=== PATIENT | female | born 1940 | race Caucasian/White ===

== ENCOUNTER 2022-08-02 08:41 | Observation (INO) ==
--- NOTE | 2022-06-17 12:02 | PAT Medication Instructions ---
Medication Instructions Date of Service June 17, 2022 Home Medications amlodipine 5 mg tablet 2.5 mg PO HS anastrozole 1 mg tablet 1 mg PO QAM aspirin 81 mg tablet,delayed release 81 mg PO PM atorvastatin 40 mg tablet 20 mg PO HS calcium carbonate 650 mg calcium (1,625 mg) tablet 650 mg PO BID ezetimibe 10 mg tablet 10 mg PO HS lorazepam 0.5 mg tablet 0.5 mg PO BID magnesium oxide 400 mg (241.3 mg magnesium) tablet 500 mg PO QAM metoprolol succinate 25 mg tablet,extended release 24 hr 37.5 mg PO BID potassium chloride 10 mEq tablet,extended release(part/cryst) 10 meq PO BID acetaminophen 650 mg tablet,extended release 650 mg PO Q12H PRN Pain cholecalciferol (vitamin D3) 50 mcg (2,000 unit) capsule (Vitamin D3) 50 mcg PO QAM olmesartan 40 mg-hydrochlorothiazide 12.5 mg tablet 1 tab PO QAM ASK your prescriber and surgeon aspirin 81 mg tablet,delayed release 81 mg PO PM anastrozole 1 mg tablet 1 mg PO QAM DO NOT take the morning of surgery potassium chloride 10 mEq tablet,extended release(part/cryst) 10 meq PO BID calcium carbonate 650 mg calcium (1,625 mg) tablet 650 mg PO BID magnesium oxide 400 mg (241.3 mg magnesium) tablet 500 mg PO QAM cholecalciferol (vitamin D3) 50 mcg (2,000 unit) capsule (Vitamin D3) 50 mcg PO QAM olmesartan 40 mg-hydrochlorothiazide 12.5 mg tablet 1 tab PO QAM Take morning of surgery With a small sip of water, OTHERWISE NOTHING TO EAT OR DRINK AFTER MIDNIGHT: lorazepam 0.5 mg tablet 0.5 mg PO BID metoprolol succinate 25 mg tablet,extended release 24 hr 37.5 mg PO BID acetaminophen 650 mg tablet,extended release 650 mg PO Q12H PRN Pain (if needed) Take evening before surgery ezetimibe 10 mg tablet 10 mg PO HS amlodipine 5 mg tablet 2.5 mg PO HS atorvastatin 40 mg tablet 20 mg PO HS potassium chloride 10 mEq tablet,extended release(part/cryst) 10 meq PO BID calcium carbonate 650 mg calcium (1,625 mg) tablet 650 mg PO BID lorazepam 0.5 mg tablet 0.5 mg PO BID metoprolol succinate 25 mg tablet,extended release 24 hr 37.5 mg PO BID acetaminophen 650 mg tablet,extended release 650 mg PO Q12H PRN Pain (if needed) Other Notes If you have any questions please call us at [phone] or [phone] or [phone] or [phone]
--- NOTE | 2022-06-23 13:33 | Anesthesiology Consultation ---
Date of Service June 23, 2022 Assessment & Plan (1) Encounter for pre-operative examination: Chart Review Chart Review: Pending: Refer to Additional Notes / Consult section (pending PCP response to optimization form, cardiac clearance (please send optimization form), and most recent pacemaker check ) and Patient seen in Pre Admission Testing -Fax optimization note to PCP re: elevated glucose and abnormal CXR (please also send preop testing) - Fax optimization note to cardio re: patient approval for upcoming surgery from cardiac standpoint (has upcoming cardio appt next week per patient) - Please obtain most recent pacemaker check - Check BSG AM DOS (due to hyperglycemia on preop labs) - Pt is NOT a Same Day Joint candidate Per PAT appt on 06/23/22, patient denies any recent travel or large group activities. Pt is vaccinated for Covid. Will leave to surgeon's discretion if preop Covid testing needed. Educated on importance of using Covid precautions one week prior to surgery Pt seen by PCP 06/11/22= Pt presents for tight chest discomfort and low pulse. Pacer check today showed PACs and PVCs. Discussed with cardio- metoprolol dose adjusted and will follow up with cardio in two weeks. No chest discomfort with exertion. Nonrheumatic aortic valve insufficiencynoted to echo August 2021. Hypertensionamlodipine decreased; metoprolol increased. Metoprolol increased due to PACs/PVCs. Hyperlipidemiaencouraged diet and exercise. Teaching & Discussion Pre-Anesthesia Teaching/Discussion Notes: Instructed NPO after midnight before surgery,except medications with 15 cc of water. Medication instructions provided according to the PAT guidelines. History Surgery Operation Date: 08/02/22 09:00 Proposed Procedures p Left Total Knee Arthroplasty - Sanya Vega DO Height/Weight Height: 4 ft 10 in Weight: 65.3 kg Allergies Allergy/AdvReac Type Severity Reaction Status Date / Time prednisone Allergy Unknown Unknown Verified 06/17/22 09:48 Medications Home Medications Medication Instructions Recorded Confirmed Last Taken amlodipine 5 mg tablet 2.5 mg PO HS 03/23/22 06/17/22 Unknown anastrozole 1 mg tablet 1 mg PO QAM 03/23/22 06/17/22 Unknown aspirin 81 mg tablet,delayed 81 mg PO PM 03/23/22 06/17/22 Unknown release atorvastatin 40 mg tablet 20 mg PO HS 03/23/22 06/17/22 Unknown calcium carbonate 650 mg calcium 650 mg PO BID 03/23/22 06/17/22 Unknown (1,625 mg) tablet ezetimibe 10 mg tablet 10 mg PO HS 03/23/22 06/17/22 Unknown lorazepam 0.5 mg tablet 0.5 mg PO BID 03/23/22 06/17/22 Unknown magnesium oxide 400 mg (241.3 mg 500 mg PO QAM 03/23/22 06/17/22 Unknown magnesium) tablet metoprolol succinate 25 mg 37.5 mg PO BID 03/23/22 06/17/22 Unknown tablet,extended release 24 hr potassium chloride 10 mEq 10 meq PO BID 03/23/22 06/17/22 Unknown tablet,extended release(part/cryst) acetaminophen 650 mg 650 mg PO Q12H PRN Pain 06/17/22 06/17/22 Unknown tablet,extended release cholecalciferol (vitamin D3) 50 50 mcg PO QAM 06/17/22 06/17/22 Unknown mcg (2,000 unit) capsule (Vitamin D3) olmesartan 40 1 tab PO QAM 06/17/22 06/17/22 Unknown mg-hydrochlorothiazide 12.5 mg tablet Past Medical History Medical History Anxiety Breast cancer chemo/radiation > 2019 > lumpectomy A port placed for chemo- later removed CAD (coronary artery disease) 01/30/10- KRZYSZTOF to RCA x2 02/17/10 - KRZYSZTOF to LAD x 2 and Cx Heart block pt unaware of details, reason for pacemaker High blood pressure Hyperglycemia Glucose 224 on preop labs Hyperlipidemia Osteoarthritis Pacemaker [employer] > placed Nov 2020 > last checked June 11, 2022 > follows with Dr. Tucker in [facility] historian Rheumatoid arthritis Follows with PCP currently Sleep apnea hx of > no longer using machine due to recall 2 yrs ago > feels no issues with Exercise / Class Metabolic Activity III < 4 Walking/Shop/Light housework (no chest pain or SOB with short distance, flat surface ambulation - uses cane ) Past Surgical History Surgical History History of heart artery stent Jan 2010 History of lumpectomy of right breast History of tooth extraction Hx of tonsillectomy Past Anesthesia History No Hx of Anesthesia Complications (with exception to awareness and moving during 1st cardiac cath ) and No Family Hx of Anesthesia Complications History of PONV No Hx of Motion Sickness and History of PONV (remote 1x hx with eye surgery ) Social History Smoking Status: Never smoker Do You Dip or Chew Tobacco: No Hx Alcohol Use: No Hx Substance Use: No substance use type: does not use Review of Systems One episode of dizziness last week - following with cardio- no recent issues Occ reflux - improved with almonds Patient denies chest pain, shortness of breath, cough, wheezing, palpitations. No hx of seizures, stroke. No hx of blood clots or blood transfusions Physical Exam Constitutional no acute distress ENMT Mouth: no TMJ clicking Thyromental Distance: < 3.5 Finger Breadths (2.5) Mallampati Class: III Partial plate on top Missing bottom molars Neck + limited neck extension Respiratory normal respiratory effort; no respiratory distress Auscultation: lungs clear to auscultation bilaterally; no wheezes Cardiovascular Rate/Rhythm: regular rate and regular rhythm Heart Sounds: + murmur (II/ murmur ) Vessels: no carotid bruit Musculoskeletal Spine: no pain with cervical ROM Extremities: extremities normal to inspection Psychiatric Orientation: alert Lab Results Anesthesia Preop Results Results Anesthesia Widget: WBC 8.24 K/ul (4.8-10.8) 06/23/22 Hgb 14.4 g/dl (12.0-16.0) 06/23/22 Hct 41.8 % (37.0-47.0) 06/23/22 Plt 213 K/uL (130-400) 06/23/22 Na 141 mmol/L (136-145) 06/23/22 K 3.7 mmol/L (3.5-5.1) 06/23/22 Cl 103 mmol/L (98-107) 06/23/22 CO2 29 mmol/L (21-32) 06/23/22 BUN 22 mg/dl (6-23) 06/23/22 Creat 0.81 mg/dl (0.6-1.2) 06/23/22 Glucose Level 224 mg/dl (70-99(Fasting)) H 06/23/22 PT 10.3 Seconds (9.0-12.0) 06/23/22 PTT 25.8 Seconds (21.0-31.0) 06/23/22 INR 1.0 (0.9-1.1) 06/23/22 HA1c 5.7 % (4.5-5.6) H 06/23/22 Blood Type O Positive 06/23/22 Antibody Screen NEGATIVE 06/23/22 Testing Laboratory Results Surgeon's office informed of glucose results Electrocardiogram Date: 06/23/22 Atrial-sensed ventricular-paced rhythm with prolonged AV conduction at 58bpm Chest X-Ray Date: 06/23/22 FINDINGS: Dual lead left subclavian pacer is in place. There are right axillary surgical clips. Mild cardiomegaly is noted. There is no evidence for pulmonary edema. Subtle increased attenuation projecting over the right lower lung is noted. This may be artifactual. Left lung is clear. IMPRESSION: 1. Subtle band of increased attenuation projecting over the right lower lung. This is likely artifactual. A small focus of pneumonia is considered less likely however a nonemergent chest CT is recommended. 2. Cardiomegaly. No evidence for pulmonary edema. Echocardiogram Date: 08/31/21 EF: 60-65% LV Function: normal RWMA: + none Other Findings: + LVH (mild) and + diastolic dysfunction Pacemaker wire in RV. Mild aortic valve sclerosis without significant AV stenosis Mild to moderate AR. Mild MR. Mild TR. Mild AR Aortic root is mildly dilated at 3.41cm; ascending aorta mildly dilated at 3.52cm Compared to report from prior study on 08/25/20- no significant change Stress Test Date: 09/14/16 Type: nuclear Pharmacologic stress nuclear study is normal. Normal SPECT perfusion images. No significant ischemia detected. No evidence of infarct. Nondiagnostic due to left bundle branch block Normal LV systolic function. EF 70-75% Cervical Spine Date: 06/23/22 FINDINGS: The cervical spine is visualized from C1 through T1. No fracture or subluxation. Disc spaces are preserved. Prevertebral soft tissues and the C1-C2 interval are intact. The alignment remains intact throughout flexion and extension. Mild facet degenerative changes. IMPRESSION: 1. No fractures within the cervical spine. 2. The alignment remains intact throughout flexion and extension. COVID-19 Risk Screen Screening Information COVID-19 Screen Date: 06/23/22 Exposure 21 Days Family/Household +COVID Last 21 Days: No Exposure 10 Days Any COVID Exposure Last 10 Days: No Symptoms Last 10 Days Experienced COVID Sx Last 10 Days: No + COVID 0-90 Days COVID + in Last 0-90 Days: No Risk Plan COVID Risk Plan: No Risk Identified Patient Education COVID Preop Screening Education Complete: Yes
--- NOTE | 2022-07-29 12:33 | History & Physical Report ---
Date of Service July 29, 2022 Assessment & Plan (1) Osteoarthritis of left knee: We will proceed with a left total knee arthroplasty. Postoperatively she will be started on aspirin for DVT prophylaxis and kept overnight in the hospital for postop medical management. She plans to use energy physical therapy upon discharge. History of Present Illness Chief Complaint: Osteoarthritis of the left knee. Primary Care Provider: Jarad Paredes MD Irma is a pleasant 82-year-old female, who has been dealing with chronic increasing left knee pain. She has been treated at [facility] [place]. She has had multiple injections. She does have a cardiac history with five cardiac stents placed and a pacemaker. She has received cardiac clearance. Her knee pain is affecting her quality of life. She has trouble walking. She needs to use a walker. After failing extensive conservative treatment, she has elected proceed with a left total knee arthroplasty. Allergies Allergy/AdvReac Type Severity Reaction Status Date / Time prednisone Allergy Unknown Unknown Verified 06/17/22 09:48 Home Medications Medication Instructions Recorded Confirmed Type amlodipine 5 mg tablet 2.5 mg PO HS 03/23/22 06/17/22 History anastrozole 1 mg tablet 1 mg PO QAM 03/23/22 06/17/22 History aspirin 81 mg tablet,delayed 81 mg PO PM 03/23/22 06/17/22 History release atorvastatin 40 mg tablet 20 mg PO HS 03/23/22 06/17/22 History calcium carbonate 650 mg calcium 650 mg PO BID 03/23/22 06/17/22 History (1,625 mg) tablet ezetimibe 10 mg tablet 10 mg PO HS 03/23/22 06/17/22 History lorazepam 0.5 mg tablet 0.5 mg PO BID 03/23/22 06/17/22 History magnesium oxide 400 mg (241.3 mg 500 mg PO QAM 03/23/22 06/17/22 History magnesium) tablet metoprolol succinate 25 mg 37.5 mg PO BID 03/23/22 06/17/22 History tablet,extended release 24 hr potassium chloride 10 mEq 10 meq PO BID 03/23/22 06/17/22 History tablet,extended release(part/cryst) acetaminophen 650 mg 650 mg PO Q12H PRN Pain 06/17/22 06/17/22 History tablet,extended release cholecalciferol (vitamin D3) 50 50 mcg PO QAM 06/17/22 06/17/22 History mcg (2,000 unit) capsule (Vitamin D3) olmesartan 40 1 tab PO QAM 06/17/22 06/17/22 History mg-hydrochlorothiazide 12.5 mg tablet Past Med/Surg History Medical History Anxiety Breast cancer chemo/radiation > 2019 > lumpectomy A port placed for chemo- later removed CAD (coronary artery disease) 01/30/10- KRZYSZTOF to RCA x2 02/17/10 - KRZYSZTOF to LAD x 2 and Cx Heart block pt unaware of details, reason for pacemaker High blood pressure Hyperglycemia Glucose 224 on preop labs Hyperlipidemia Osteoarthritis Pacemaker [employer] > placed Nov 2020 > last checked June 11, 2022 > follows with Dr. Tucker in [facility] historian Rheumatoid arthritis Follows with PCP currently Sleep apnea hx of > no longer using machine due to recall 2 yrs ago > feels no issues with Surgical History History of heart artery stent Jan 2010 History of lumpectomy of right breast History of tooth extraction Hx of tonsillectomy Social History Smoking Status: Never smoker Second Hand Exposure: Yes (when working years ago); Do You Dip or Chew Tobacco: No; Hx Alcohol Use: No Hx Substance Use: No Preferred Language: Macanese Communication Ability: Effective Client Consultant Required: No Beliefs That Will Affect Care: None Current Living Situation: Alone Feels Safe at Home: Yes Assistive Devices: Cane, Denture - Upper, Glasses and Hearing Aid - Bilateral Review of Systems All systems reviewed & are unremarkable except as noted in HPI & below. Physical Exam On physical examination of the left knee, she has a significant varus deformity. She has good range of motion. She has pain over the distal medial femoral condyle and over the medial joint line.. Constitutional WD/WN, vitals as above Eyes PERRL, conjunctivae normal, anicteric sclerae ENMT external ear and nose normal, oropharynx normal Neck trachea midline, no thyromegaly Respiratory normal respiratory effort, lungs clear to auscultation Cardiovascular RRR, no murmur, no edema Gastrointestinal (Abdomen) normal bowel sounds, soft, nontender, no hepatosplenomegaly Skin no rashes, warm and dry Psychiatric A+Ox3, euthymic affect Results & Data Results & Data Laboratory Results . Diagnostic Findings X-rays of the left knee show advanced osteoarthritis with joint space narrowing, osteophyte formation, and [id number] articulation. PG Care Time/CCT Total # of Minutes Spent Total Time Spent with Patient: Total time spent is greater than 50% in coordination of care (as documented) at patient's floor/unit and/or counseling patient: Coding Level of Care Code None Diagnoses Osteoarthritis of left knee M17.12
[~2022-08-02 08:41] MED LIST: ACETAMINOPHEN 500 MG TAB PO SCH; BUPIVACAINE 0.5 % 5 MG/1 ML PF 10ML VIAL ONE; FAMOTIDINE 20 MG TAB PO SCH; GABAPENTIN 300 MG CAP PO SCH; LR 500ML BOLUS, THEN 15ML/HR IV SCH; LR 60ML/HR IV SCH; ROPIVACAINE 0.5% 5 MG/ML 30 ML VIAL ONE; TRANEXAMIC ACID 1,000 MG **IV Intra-op IV SCH; TRANEXAMIC ACID 1,000 MG **IV Pre-op IV SCH; ceFAZolin 2000MG 2,000 MG/15 ML SYR IV SCH
[2022-08-02] MEDS ORDERED: fentaNYL citrate PF 100 MCG/2 ML VIAL ONE (10:18)
[2022-08-02] MEDS: ALLERGY Noted to ORDERED Medication SCH ×4 (10:18→19:27)
[2022-08-02] MEDS ORDERED: MIDAZOLAM HCL 1 MG/ML 2ML VIAL ONE (10:18)
[2022-08-02] MEDS ORDERED: HYDROmorphone INJ 1 MG/ML SYRINGE IV PRN (11:43)
[2022-08-02] MEDS ORDERED: ATROPINE SULFATE 0.1 MG/ML 10ML SYR IV PRN (11:43)
[2022-08-02] MEDS ORDERED: ePHEDrine sulfate 50 MG/ML AMP IV PRN (11:43)
[2022-08-02] MEDS ORDERED: KETOROLAC 30 MG/ML VIAL IV PRN (11:43)
[2022-08-02] MEDS ORDERED: ONDANSETRON INJ 2 MG/ML 2 ML VIAL IV PRN ×2 (11:43→15:31)
--- NOTE | 2022-08-02 11:49 | History & Physical Bridge Note ---
Date of Service August 02, 2022 History & Physical Bridge Note I have examined the patient, reviewed the History & Physical and in the interval since the performance of the History & Physical I have noted the following changes of clinical significance: no changes noted
[2022-08-02] MEDS ORDERED: Ketorolac (*for OR use only*) 30 MG, dexAMETHasone 4 MG, KETAMINE HCL (**OR use only) 1... INFIL SCH ×2 (12:30→12:45)
[2022-08-02] MEDS ORDERED: PROPOFOL IV EMULSION 10 MG/ML 20 ML VIAL IV ONE (13:13)
--- NOTE | 2022-08-02 13:18 | Operative Report ---
PG Post Operative Report Pre & Post Diagnosis Operation Date: 08/02/22 11:20 Preoperative diagnosis: Osteoarthritis of the left knee Postop diagnosis: Osteoarthritis of the left knee I identified the patient and participated in the time-out.: Yes Procedure Operation Date: 08/02/22 11:20 Procedure: Left total knee arthroplasty Surgeon Sanya Vega DO Transport Medic Sanya Bonilla PA-C Estimated Blood Loss 30 Findings Consistent with Post-Op Diagnosis Specimens Left femoral and tibial bone Description of Procedure Implants used: I used a Cecil Persona total knee arthroplasty system with a size 5 narrow PS femur, C tibia, 31 oval patella, and a size 18 CPS polyethylene bearing. All components were cemented in place with Biomet cement. Irma arrived [facility] for the above procedure. She was seen in the preoperative holding area and the operative extremity was identified and signed. She was given a preoperative antibiotic, TXA, a spinal anesthetic and an adductor nerve block. She was taken back to the operating room and laid on the table in supine position. She was given basic sedation. The operative knee was then prepped and draped in sterile fashion. A timeout was done, and the patient and the operative extremity was properly identified. A midline incision was made directly over the patella. Dissection was taken down to the extensor mechanism. A midvastus arthrotomy was used. The medial retinaculum was released and the fat pad was mostly excised. The knee was flexed and the ACL, PCL, and meniscus were removed. A drill was sent down the center of the femoral canal followed by an intramedullary ashish. Off that ashish a distal femoral cutting block was placed. 9 mm was resected off the distal femur at 5 of valgus. A posterior referencing AP sizing guide was then placed on the distal femur. The femur measured to be a size 5. 2 drill holes were placed in 3 of external rotation. A 4-in-1 cutting block was then impacted into place. Anterior, posterior, and chamfer cuts were then made. The proximal tibia was then exposed. An external tibial alignment guide was placed. A tibial cut guide was then anchored in place and the proximal tibia was then resected. The posterior aspect of the knee was then opened up and any additional meniscus fragments and osteophytes were removed. The tibia measured to be a size C. The tibial plate was then placed in the appropriate rotation and the tibia was drilled and punched. Trial components were then placed. I used a size 18 CPS polyethylene insert. The knee was brought through a full range of motion and felt to be stable. The peg holes for the femoral component were then drilled. The patella was then everted and 9 mm was resected off the posterior aspect of the patella. The patella measured to be a size 31 oval. 3 peg holes were then drilled. A trial patella was placed. The knee was once again brought through a full range of motion and felt to be stable. Trial components were then removed. The surrounding soft tissues were injected with 100 cc of an orthopedic pain control cocktail. All components were then cemented into place with Biomet cement. The final polyethylene insert was then snapped into place. Once cement was dry the tourniquet was deflated. Hemostasis was obtained. A dilute betadyne lavage was then done for 3 minutes. The joint was then irrigated with normal saline solution. The midvastus arthrotomy was then closed with #1 Vicryl suture. The skin was closed with 2-0 Vicryl, 3-0V lock suture, and isabella. A soft compressive dressing was placed. She was then transferred to a hospital bed and taken to the postanesthesia care unit in stable condition. She tolerated the procedure well. Sanya Bonilla PA-C, was present for the entire procedure. He was critical for patient positioning, prepping, draping, retraction exposure, wound closure and application of sterile dressing. I attest to the content of the Intraoperative Record and any orders documented therein. Any exceptions are noted below.
--- NOTE | 2022-08-02 14:07 | XRay Report ---
TWO VIEWS LEFT KNEE CLINICAL HISTORY: Postoperative examination. FINDINGS: AP and crosstable lateral portable views of the left knee are obtained. A left knee arthrop lasty is in near anatomic alignment. There has been undersurface remodeling of the patella. No acute fracture is seen. There are expected postoperative changes around the knee including skin clips, soft tissue edema, and subcutaneous gas. IMPRESSION: Expected postoperative changes status post left knee arthroplasty. No acute fracture is s een. ACT 112: Negative or not required by law. Electronically signed by: Sotero Parker M.D. 08/02/2022 2:05 PM
[2022-08-02] MEDS ORDERED: METOCLOPRAMIDE HCL INJ 5 MG/ML 2 ML VIAL IV PRN (15:31)
[2022-08-02] MEDS ORDERED: oxyCODONE HCL IR 5 MG TAB (IMMEDIATE RELEASE) PO PRN (15:31)
[2022-08-02] MEDS ORDERED: bisacodyL 10 MG SUPP PR PRN (15:31)
[2022-08-02] MEDS ORDERED: NALOXONE HCL 0.4 MG/1 ML VIAL/CARP IV PRN (15:31)
[2022-08-02] MEDS ORDERED: HYDROmorphone INJ 0.5 MG/0.5 ML SYR IV PRN (15:31)
[2022-08-02] MEDS ORDERED: MAGNESIUM HYDROXIDE SUSP 30 ML UDC PO PRN (15:31)
--- NOTE | 2022-08-02 15:43 | Anesthesiology Progress Note ---
Date of Service August 02, 2022 Anesthesia Post Procedure Vital Signs Vital Signs: Temp Pulse Pulse Resp BP Pulse Ox O2 Del Method 08/02/22 15:00 36.0 C L 63 20 135/69 95 Nasal Cannula 08/02/22 14:50 63 20 124/64 97 Nasal Cannula 08/02/22 14:40 61 20 133/67 95 Nasal Cannula 08/02/22 14:30 63 20 130/68 95 Nasal Cannula 08/02/22 14:20 62 20 127/72 95 Nasal Cannula 08/02/22 14:10 62 16 120/70 96 Nasal Cannula 08/02/22 14:00 62 20 99/62 L 95 Nasal Cannula 08/02/22 13:50 65 20 116/62 97 Nasal Cannula 08/02/22 13:42 36.0 C L 66 20 110/63 96 Oxymask 08/02/22 09:49 CPAP 08/02/22 09:49 36.7 C 60 20 142/77 H 97 Room Air O2 Flow Rate 08/02/22 15:00 2 08/02/22 14:50 2 08/02/22 14:40 2 08/02/22 14:30 2 08/02/22 14:20 2 08/02/22 14:10 2 08/02/22 14:00 2 08/02/22 13:50 2 08/02/22 13:42 6 08/02/22 09:49 08/02/22 09:49 Transfer of Care Handoff Completed per policy Notes Mental Status: alert / awake / arousable Patient Amnestic to Procedure: Yes Nausea / Vomiting: adequately controlled Pain: adequately controlled Airway Patency, RR, SpO2: stable & adequate BP & HR: stable & adequate Hydration State: stable & adequate Anesthetic Complications: no major complications apparent
[2022-08-02] MEDS: SODIUM CHLORIDE 0.9% 1000ML 1,000 ML IV SCH (16:30)
[2022-08-02] MEDS: KETOROLAC TROMETHAMINE 15 MG/ML VIAL IV SCH ×2 (16:38→22:55)
[2022-08-02] MEDS: ACETAMINOPHEN 500 MG TAB PO SCH (17:42)
[2022-08-02] MEDS: ceFAZolin 2000MG 2,000 MG/15 ML SYR IV SCH (20:43)
[2022-08-02] MEDS: ASPIRIN 81 MG ECTAB PO SCH (20:45)
[2022-08-02] MEDS: DOCUSATE SODIUM 100 MG CAP PO SCH (20:46)
[2022-08-02] MEDS: METOPROLOL SUCC 25MG EXT REL TAB PO SCH (20:47)
[2022-08-02] MEDS: POTASSIUM CHLORIDE 10 MEQ TABCR PO SCH (20:48)
[2022-08-02] MEDS: LORazepam 0.5 MG TAB PO SCH (20:53)
[2022-08-02] MEDS ORDERED: SENNA 8.6 MG TAB PO SCH (21:00)
[2022-08-02] MEDS ORDERED: ATORVASTATIN 20 MG TAB PO SCH (21:00)
[2022-08-02] MEDS ORDERED: amLODIPine BESYLATE 5 MG TAB PO SCH (21:00)
[2022-08-02] MEDS ORDERED: EZETIMIBE 10 MG TABLET PO SCH (21:00)
[2022-08-03] MEDS: SODIUM CHLORIDE 0.9% 1000ML 1,000 ML IV SCH (00:42)
[2022-08-03] MEDS: ACETAMINOPHEN 500 MG TAB PO SCH ×2 (01:35→08:33)
[2022-08-03] MEDS: ceFAZolin 2000MG 2,000 MG/15 ML SYR IV SCH (04:28)
[2022-08-03] MEDS: KETOROLAC TROMETHAMINE 15 MG/ML VIAL IV SCH ×2 (04:29→08:35)
--- NOTE | 2022-08-03 07:07 | Orthopedic Progress Note ---
Date of Service August 03, 2022 Assessment & Plan (1) Status post left knee replacement: Overall she is doing very well. She is not having much pain in the left knee. She will be seen by physical therapy today for ambulation and range of motion exercises. She is on aspirin for DVT prophylaxis. She can be discharged home later today. She will follow-up with orthopedics in 2 weeks. Sheron Solis was seen and examined at bedside this morning. Overall she is doing very well. She is not having much pain in the left knee. She has been up and ambulating. She has no complaints.. Review of Systems All systems reviewed & are unremarkable except as noted in HPI & below. Physical Exam On physical examination the left knee, the dressing is clean and dry. Her leg is out full extension. She has active dorsiflexion plantarflexion of her left ankle.. Results & Data Results & Data Laboratory Results . Diagnostic Findings Postoperative x-rays of the left knee show the prosthesis to be in anatomic alignment without any evidence of fracture, desiccation, or loosening. PG Care Time/CCT Total # of Minutes Spent Total Time Spent with Patient: Total time spent is greater than 50% in coordination of care (as documented) at patient's floor/unit and/or counseling patient: Coding Level of Care Code 75601 Post Operative Follow-Up Diagnoses Status post left knee replacement Z96.652
--- NOTE | 2022-08-03 07:08 | Discharge Summary ---
Date of Service August 03, 2022 Admission HPI (Per Admitting) Irma is a pleasant 82-year-old female, who has been dealing with chronic increasing left knee pain. She has been treated at the [facility] in [place]. She has had multiple injections. She does have a cardiac history with five cardiac stents placed and a pacemaker. She has received cardiac clearance. Her knee pain is affecting her quality of life. She has trouble walking. She needs to use a walker. After failing extensive conser vative treatment, she has elected proceed with a left total knee arthroplasty. Admission Exam (Per Admitting) On physical examination of the left knee, she has a significant varus deformity. She has good range of motion. She has pain over the distal medial femoral condyle and over the medial joint line.. Principal Diagnosis Same as "Discharge Diagnosis" noted below under Discharge Instructions. Discharge Exam On physical examination the left knee, the dressing is clean and dry. Her leg is out full extension. She has active dorsiflexion plantarflexion of her left ankle.. Discharge Data Procedures Performed Operation Date: 08/02/22 11:20 Actual Procedures p Left Total Knee Arthroplasty(Left) - Sanya Vega DO Ordered Studies 08/02/22 05:00 US - OR guided needle placemen Routine Hospital Course (1) Status post left knee replacement: On August 02, 2022 Irma arrived at [facility] and underwent a left knee replaced without complication. She had a spinal anesthetic. Postoperatively she was started on aspirin for DVT prophylaxis and transferred to the general orthopedic floors. Her hospital course was uneventful. On postop day #1, her vital signs were stable and her pain was well controlled. She was able to participate well with physical therapy doing ambulation and range of motion exercises. She was then discharged home. She will follow with orthopedics in 2 weeks. PG Care Time/CCT Total # of Minutes Spent Total Time Spent with Patient: Total time spent is greater than 50% in coordination of care (as documented) at patient's floor/unit and/or counseling patient: Discharge Plan Discharge Items Patient Disposition: Home - Home Health Services Reason For Visit: Degenerative Joint Disease Left Knee Discharge Diagnosis: Left knee replacement Activity: Per Instructions section Non-emergency contact: Surgeon Call non-emergency contact if: your wound has increased redness and your wound has increased drainage Follow-up/Referrals: PCP,NO [Physician] - Diet: Regular Addtl Attending Provider Instructions: Activity and Therapy Recommendations: * If you are using [facility] then therapy will be provided at your home until they feel you have accomplished all of your goals. * If you are using [facility] then Physical Therapy will be provided until they feel you are ready to start Outpatient Physical Therapy. * If you are not using home therapy then Outpatient Physical Therapy should start about 3-5 days from your day of surgery. Therapy will last about 6-10 weeks * It is important not to put a pillow under your knee when you are relaxing or sleeping. It is just as important to make sure you are getting your knee perfectly straight as it is to regain your knee bend. * You were shown a series of exercises in the hospital. Do these exercises three times each day including the exercises you were shown in physical therapy. * Get up and walk several times each day. For the first four weeks, try not to stand or walk for more than one hour at a time. If you do stand or walk for more than one hour, you will not hurt anything, but your leg will likely swell. * As you feel comfortable, you may change from the walker or crutches to a cane and then to independent walking. Medications: * Narcotic You will likely be sent home from the hospital with a prescription for the narcotic pain medication that worked best throughout your stay. * Aspirin Most patients will be required to take Aspirin 81mg twice a day for 6 weeks after surgery. This is obtained [id number] and a prescription is not necessary. * Other medications may be prescribed for specific circumstances. If you have any questions, please call the office at . * Resume previous home medications unless otherwise instructed TEDs/Elastic Stockings: The white elastic stockings help limit swelling and prevent blood clots from forming in your legs.~ The more you wear them, the more they work. Wear them for six weeks. Dressing Care: The dressing can be changed after physical therapy on postop day #1. Daily dry dressing changes for a few days, especially if the incision is still draining some. If the incision is not draining then you may leave the isabella open to air. If there is a little bit of drainage or if the isabella are getting stuck on your clothing then cover the incision with a dry dressing. The isabella will be removed at your 2 week follow-up appointment. Showering: You may shower 5 days from the day of surgery as long as the incision is no longer draining. You may shower with the isabella exposed. Let soapy water run over the isabella and pat them dry. Do not scrub or soak the incision. Things To Watch For: * Drainage from the incision site that occurs more than one week after your surgery. * Increased redness at the incision site. * Fever above 102 degrees Fahrenheit. * Unusual chest pain or shortness of breath. * Call [facility] at with any of the above problems Follow-Up Visit: Follow-up with Dr. Vega's PA (Sanya Bonilla) 2-3 weeks after your day of surgery. He will remove your isabella and answer any questions. If you have any additional questions or concerns, Dr Vega is usually in the office at the same time and will be available An appointment was probably scheduled when you signed-up for surgery in the office. If you have any questions call Office Instructions: More detailed instructions as well as Frequently Asked Questions were provided in a folder by our office when you signed-up for surgery. Please review these instructions when you get home. If you have any further questions or concerns, please feel free to call the office at [phone] Pending Studies at Discharge: No Stand-Alone Forms: [facility], Smoking Cessation Medications and DC Order Prescriptions: New tramadol 50 mg tablet 50 mg PO Q6H PRN (Reason: pain) Qty: 30 0RF Continued metoprolol succinate 25 mg tablet extended release 24 hr 37.5 mg PO BID potassium chloride 10 mEq tablet,ER particles/crystals 10 meq PO BID anastrozole [Arimidex] 1 mg tablet 1 mg PO QAM atorvastatin [Lipitor] 40 mg tablet 20 mg PO HS amlodipine [Norvasc] 5 mg tablet 2.5 mg PO HS lorazepam 0.5 mg tablet 0.5 mg PO BID magnesium oxide 400 mg (241.3 mg magnesium) tablet 500 mg PO QAM calcium carbonate 650 mg calcium (1,625 mg) tablet 650 mg PO BID ezetimibe [Zetia] 10 mg tablet 10 mg PO HS acetaminophen [Tylenol Arthritis] 650 mg Tablet Extended Release 650 mg PO Q12H PRN (Reason: Pain) olmesartan-hydrochlorothiazide [Benicar HCT] 40-12.5 mg Tablet 1 tab PO QAM cholecalciferol (vitamin D3) [Vitamin D3] 50 mcg (2,000 unit) Capsule 50 mcg PO QAM Changed aspirin 81 mg tablet,delayed release (DR/EC) 81 mg PO BID 42 Days Qty: 0 0RF Admission Data Admit Date/Time: 08/02/22 13:43 Attending Provider: Sanya Vega Admit Provider: Sanya Vega Primary Care Provider: Jarad Paredes
[2022-08-03] MEDS ORDERED: dexAMETHasone 4 MG TAB PO SCH (08:00)
[2022-08-03] MEDS: ASPIRIN 81 MG ECTAB PO SCH (08:32)
[2022-08-03] MEDS: POTASSIUM CHLORIDE 10 MEQ TABCR PO SCH (08:35)
[2022-08-03] MEDS: METOPROLOL SUCC 25MG EXT REL TAB PO SCH (08:35)
[2022-08-03] MEDS: DOCUSATE SODIUM 100 MG CAP PO SCH (08:35)
[2022-08-03] MEDS: LORazepam 0.5 MG TAB PO SCH (08:43)
[2022-08-03] MEDS ORDERED: MAGNESIUM OXIDE 400 MG TAB PO SCH (09:00)
[2022-08-03] MEDS ORDERED: hydroCHLOROthiazide 25 MG TAB PO SCH (09:00)
[2022-08-03] MEDS ORDERED: OLMESARTAN HYDROCHLOROTHIAZIDE PO SCH (09:00)
[2022-08-03] MEDS ORDERED: ANASTROZOLE 1 MG TAB PO SCH (09:00)
[2022-08-03] MEDS ORDERED: MULTIVITAMIN TAB PO SCH (09:00)
[2022-08-03] MEDS ORDERED: LOSARTAN POTASSIUM 50 MG TAB PO SCH (09:00)
== END 2022-08-03 11:04 | disposition home health service (06) ==
LOC: ASU 08:41 → 3W 08:41

== ENCOUNTER 2023-07-29 06:39 | Observation (INO) ==
--- NOTE | 2023-07-07 12:27 | PAT Medication Instructions ---
Medication Instructions Date of Service July 07, 2023 Home Medications Medication Instructions Recorded amoxicillin 500 mg tablet 2,000 mg (4 x 500 mg) PO ONCE #4 09/14/22 tabs Medication List: amlodipine 5 mg tablet (Norvasc) 2.5 mg PO HS anastrozole 1 mg tablet (Arimidex) 1 mg PO QPM ezetimibe 10 mg tablet (Zetia) 10 mg PO HS lorazepam 0.5 mg tablet 0.5 mg PO BID magnesium oxide 400 mg (241.3 mg magnesium) tablet 500 mg PO QAM metoprolol succinate 25 mg tablet,extended release 24 hr 37.5 mg PO BID potassium chloride 10 mEq tablet,extended release(part/cryst) 10 - 20 meq PO BID acetaminophen 650 mg tablet,extended release 650 mg PO Q12H PRN Pain cholecalciferol (vitamin D3) 50 mcg (2,000 unit) capsule (Vitamin D3) 50 mcg PO QAM olmesartan 40 mg-hydrochlorothiazide 12.5 mg tablet (Benicar HCT) 1 tab PO QAM amoxicillin 500 mg tablet 2,000 mg (4 x 500 mg) PO ONCE (dental prophylaxis) apixaban 5 mg tablet (Eliquis) 5 mg PO BID atorvastatin 20 mg tablet 20 mg PO HS calcium carbonate (Calcium 600) 600 mg PO QAM MEDICATION INSTRUCTIONS: Continue as directed amoxicillin 500 mg tablet 2,000 mg (4 x 500 mg) PO ONCE (dental prophylaxis) ASK your prescriber and surgeon apixaban 5 mg tablet (Eliquis) 5 mg PO BID (for spinal anesthesia: will need to hold Eliquis/apixaban at least 72 hours prior to surgery) DO NOT take the morning of surgery cholecalciferol (vitamin D3) 50 mcg (2,000 unit) capsule (Vitamin D3) 50 mcg PO QAM olmesartan 40 mg-hydrochlorothiazide 12.5 mg tablet (Benicar HCT) 1 tab PO QAM magnesium oxide 400 mg (241.3 mg magnesium) tablet 500 mg PO QAM calcium carbonate (Calcium 600) 600 mg PO QAM potassium chloride 10 mEq tablet,extended release(part/cryst) 10 - 20 meq PO BID Take morning of surgery With a small sip of water, OTHERWISE NOTHING TO EAT OR DRINK AFTER MIDNIGHT: lorazepam 0.5 mg tablet 0.5 mg PO BID acetaminophen 650 mg tablet,extended release 650 mg PO Q12H PRN Pain (if needed) metoprolol succinate 25 mg tablet,extended release 24 hr 37.5 mg PO BID Take evening before surgery amlodipine 5 mg tablet (Norvasc) 2.5 mg PO HS anastrozole 1 mg tablet (Arimidex) 1 mg PO QPM ezetimibe 10 mg tablet (Zetia) 10 mg PO HS lorazepam 0.5 mg tablet 0.5 mg PO BID atorvastatin 20 mg tablet 20 mg PO HS acetaminophen 650 mg tablet,extended release 650 mg PO Q12H PRN Pain (if needed) metoprolol succinate 25 mg tablet,extended release 24 hr 37.5 mg PO BID potassium chloride 10 mEq tablet,extended release(part/cryst) 10 - 20 meq PO BID Other Notes If you have any questions please call us at [phone] or [phone] or [phone] or [phone]
--- NOTE | 2023-07-11 13:35 | Anesthesiology Consultation ---
Date of Service July 11, 2023 Assessment & Plan (1) Encounter for pre-operative examination: - will request 06/21/23 Dr. Caitlin Shen cardiology note, will need clearance notation if this was not a clearance appointment. - check BSG am DOS. - right arm restriction. - [employer] pacemaker. - Outpatient joint assessment: Patient is currently scheduled for inpatient pathway. If re-evaluated and patient/surgeon requests outpatient pathway, patient is not recommended candidate for outpatient joint program from anesthesia standpoint. Chart Review Chart Review: Pending: Refer to Additional Notes / Consult section and Patient seen in Pre Admission Testing Teaching & Discussion Pre-Anesthesia Teaching/Discussion Notes: Instructed NPO after midnight before surgery, except medications with 15 cc of water. Medication instructions provided according to the PAT guidelines. History Surgery Operation Date: 07/29/23 07:00 Proposed Procedures p Right Total Knee Arthroplasty - Sanya Vega, Height/Weight Height: 4 ft 10 in Weight: 68.1 kg Allergies Allergy/AdvReac Type Severity Reaction Status Date / Time Penicillins Allergy Intermediate Hives Verified 07/11/23 13:39 ketoconazole Allergy red, Verified 07/06/23 09:18 itching, burning prednisone AdvReac Mild Fatigued Verified 07/06/23 09:14 Medications Home Medications Medication Instructions Recorded Confirmed Last Taken amlodipine 5 mg tablet (Norvasc) 2.5 mg PO HS 03/23/22 07/06/23 08/01/22 21:30 anastrozole 1 mg tablet (Arimidex) 1 mg PO QPM 03/23/22 07/06/23 08/01/22 07:30 ezetimibe 10 mg tablet (Zetia) 10 mg PO HS 03/23/22 07/06/23 08/01/22 21:30 lorazepam 0.5 mg tablet 0.5 mg PO BID 03/23/22 07/06/23 08/02/22 07:30 magnesium oxide 400 mg (241.3 mg 500 mg PO QAM 03/23/22 07/06/23 08/01/22 07:30 magnesium) tablet metoprolol succinate 25 mg 37.5 mg PO BID 03/23/22 07/06/23 08/02/22 07:30 tablet,extended release 24 hr potassium chloride 10 mEq 10 - 20 meq PO BID 03/23/22 07/06/23 08/01/22 18:00 tablet,extended release(part/cryst) acetaminophen 650 mg 650 mg PO Q12H PRN Pain 06/17/22 07/06/23 08/02/22 07:30 tablet,extended release cholecalciferol (vitamin D3) 50 50 mcg PO QAM 06/17/22 07/06/23 08/01/22 07:30 mcg (2,000 unit) capsule (Vitamin D3) olmesartan 40 1 tab PO QAM 06/17/22 07/06/23 08/01/22 07:30 mg-hydrochlorothiazide 12.5 mg tablet (Benicar HCT) amoxicillin 500 mg tablet 2,000 mg (4 x 500 mg) PO ONCE #4 09/14/22 07/06/23 Unknown tabs apixaban 5 mg tablet (Eliquis) 5 mg PO BID 07/06/23 07/06/23 Unknown atorvastatin 20 mg tablet 20 mg PO HS 07/06/23 07/06/23 Unknown calcium carbonate (Calcium 600) 600 mg PO QAM 07/06/23 07/06/23 Unknown Past Medical History Medical History (Updated 07/11/23 @ 15:22 by Chantell Sterling PA-C) Anxiety Breast cancer chemo/radiation > 2019 > right lumpectomy-limb restriction. A port placed for chemo- later removed CAD (coronary artery disease) 01/30/10- KRZYSZTOF to RCA x2 02/17/10 - KRZYSZTOF to LAD x 2 and Cx Hearing loss wears hearing aids bilat Heart block hx-reason for pacemaker; f/u dr. tucker, [place] History of hypertension controlled, stable per pt Hyperlipidemia Limb alert care status right arm restriction Pacemaker [employer] > placed Nov 2020 > last checked 06/01/23 > follows with Dr. Tucker in [place] Poor historian Rheumatoid arthritis Follows with PCP currently Sleep apnea CPAP-compliant Thoracic aortic aneurysm Patient denies h/o stroke, seizures, heart attack, heart failure, blood clots/DVTs or blood transfusions. Exercise / Class Metabolic Activity III < 4 Walking/Shop/Light housework (shortness of breath with usual activities ongoing over past year-denies change since seeing PCP or cardiology-denies change or worsening (noted in 06/21/23 PCP note); denies chest discomfort; ambulates with cane) Past Surgical History Surgical History History of heart artery stent 01/30/10- KRZYSZTOF to RCA x2, [facility] 02/17/10 - KRZYSZTOF to LAD x 2 and Cx, [facility], [facility]; f/u dr. tucker, [place] History of lumpectomy of right breast History of permanent cardiac pacemaker placement 11/2020, [facility] History of tooth extraction History of total left knee replacement (TKR) Hx of tonsillectomy Past Anesthesia History No Hx of Anesthesia Complications and No Family Hx of Anesthesia Complications History of PONV No Hx of Motion Sickness and History of PONV (denies needing scop patch) Social History Smoking Status: Never smoker Do You Dip or Chew Tobacco: No Hx Alcohol Use: No Hx Substance Use: No substance use type: does not use Review of Systems Patient denies chest pain, fever, chills, cough, wheezing, or palpitations. Physical Exam Vital Signs Vitals BP 129/76 P 55 TEMP 98.4 SP02 98% on RA RESP 18 Physical Patient resting comfortably in chair in no acute distress, alert and oriented, responding appropriately throughout visit Full cervical extension range of motion without pain TMD 3.5 finger breadths Mallampati Score 2 Dentition: removable upper partial, denies chipped or loose teeth, caps/crowns, implants or bridges Lungs: normal respiratory effort. Good air movement, clear throughout to auscultation, no adventitious breath sounds Cardiac: regular rate and rhythm, no murmurs noted Carotid arteries: negative bruit bilat Lab Results Anesthesia Preop Results Results Anesthesia Widget: WBC 6.79 K/ul (4.8-10.8) 07/11/23 Hgb 13.5 g/dl (12.0-16.0) 07/11/23 Hct 40.4 % (37.0-47.0) 07/11/23 Plt 223 K/uL (130-400) 07/11/23 Na 140 mmol/L (136-145) 07/11/23 K 3.7 mmol/L (3.5-5.1) 07/11/23 Cl 105 mmol/L (98-107) 07/11/23 CO2 28 mmol/L (21-32) 07/11/23 BUN 23 mg/dl (6-23) 07/11/23 Creat 0.97 mg/dl (0.6-1.2) 07/11/23 Glucose Level 88 mg/dl (70-99(Fasting)) 07/11/23 PT 10.9 Seconds (9.0-12.0) 07/11/23 PTT 29 Seconds (21-31) 07/11/23 INR 1.0 (0.9-1.1) 07/11/23 Blood Type O Positive 07/11/23 Antibody Screen NEGATIVE 07/11/23 Testing Electrocardiogram Date: 07/11/23 Atrial sensed ventricular paced rhythm with prolonged AV conduction, rate 57 bpm Chest X-Ray Date: 07/11/23 No acute process. Echocardiogram Date: 08/31/21 EF 60-65% No LV wall motion abnormalities Mild aortic valve sclerosis without significant stenosis Mild to moderate aortic regurgitation Mild mitral regurgitation Mild tricuspid regurgitation Mild pulmonic regurgitation Mildly dilated aortic root Mildly dilated ascending aorta Stress Test Date: 07/19/22 MPHR 57% No evidence of infarction or ischemia Non-diagnostic: v. paced Recommend medical treatment Cervical Spine Date: 07/11/23 No cervical spine fractures. Preserved disc spaces. No change in minimal facet arthrosis. Other Testing Pacemaker report 04/21/23 [employer] 0 mode switch episodes AP 12% DUST MIXER 89% No events
--- NOTE | 2023-07-29 06:33 | History & Physical Bridge Note ---
Date of Service July 29, 2023 History & Physical Bridge Note I have examined the patient, reviewed the History & Physical and in the interval since the performance of the History & Physical I have noted the following changes of clinical significance: no changes noted
[~2023-07-29 06:39] MED LIST changes: -ACETAMINOPHEN 500 MG TAB PO SCH; +BUPIVACAINE 0.25% PF 30 ML VIAL ONE; -FAMOTIDINE 20 MG TAB PO SCH; -GABAPENTIN 300 MG CAP PO SCH; -LR 500ML BOLUS, THEN 15ML/HR IV SCH; -LR 60ML/HR IV SCH; -ROPIVACAINE 0.5% 5 MG/ML 30 ML VIAL ONE; -TRANEXAMIC ACID 1,000 MG **IV Intra-op IV SCH; -TRANEXAMIC ACID 1,000 MG **IV Pre-op IV SCH; -ceFAZolin 2000MG 2,000 MG/15 ML SYR IV SCH
[2023-07-29] MEDS ORDERED: fentaNYL citrate PF 100 MCG/2 ML VIAL IV PRN (06:53)
[2023-07-29] MEDS ORDERED: ATROPINE SULFATE 0.1 MG/ML 10ML SYR IV PRN (06:53)
[2023-07-29] MEDS ORDERED: ONDANSETRON INJ 2 MG/ML 2 ML VIAL IV PRN ×2 (06:53→11:48)
[2023-07-29] MEDS ORDERED: ePHEDrine sulfate 50 MG/ML AMP IV PRN (06:53)
[2023-07-29] MEDS ORDERED: fentaNYL citrate PF 100 MCG/2 ML VIAL ONE (07:01)
[2023-07-29] MEDS ORDERED: MIDAZOLAM HCL 1 MG/ML 2ML VIAL ONE (07:01)
[2023-07-29] MEDS ORDERED: PHENYLEPHRINE HCL 10 MG/ML VIAL ONE (07:10)
[2023-07-29] MEDS ORDERED: PROPOFOL IV EMULSION 10 MG/ML 20 ML VIAL IV ONE (07:10)
[2023-07-29] MEDS: LR 500ML BOLUS, THEN 15ML/HR IV SCH (07:21)
[2023-07-29] MEDS: ACETAMINOPHEN 500 MG TAB PO SCH ×2 (07:22→13:46)
[2023-07-29] MEDS: FAMOTIDINE 20 MG TAB PO SCH (07:23)
[2023-07-29] MEDS: GABAPENTIN 300 MG CAP PO SCH (07:23)
[2023-07-29] MEDS: dexAMETHasone**PF** 10 MG/ML VIAL IV SCH (07:34)
[2023-07-29] MEDS: TRANEXAMIC ACID 1,000 MG **IV Pre-op IV SCH (07:42)
[2023-07-29] MEDS: ceFAZolin 2000MG 2,000 MG/15 ML SYR IV ONE (07:52)
[2023-07-29] MEDS ORDERED: ePHEDrine sulfate 50 MG/5 ML SYR ONE (08:08)
[2023-07-29] MEDS ORDERED: diphenhydrAMINE 50 MG/ML VIAL ONE (08:14)
[2023-07-29] MEDS: ORTHO JOINT ANESTHETIC ONE (08:37)
[2023-07-29] MEDS ORDERED: PHENYLEPHRINE 100MCG/ML 10ML SYR IV ONE (09:04)
[2023-07-29] MEDS: TRANEXAMIC ACID 1,000 MG **IV Intra-op IV SCH (09:15)
[2023-07-29] MEDS: ROPIV 0.5% 246mg, Ketorolac 30mg, EPINEPHrine 0.5mg in NSS INFIL SCH (09:16)
--- NOTE | 2023-07-29 09:19 | Operative Report ---
PG Post Operative Report Pre & Post Diagnosis Operation Date: 07/29/23 08:00 Pre-Op Diagnosis: Degenerative Joint Disease Right Knee Post-Op Diagnosis: Degenerative Joint Disease Right Knee I identified the patient and participated in the time-out.: Yes Procedure Operation Date: 07/29/23 08:00 Actual Procedures p Right Total Knee Arthroplasty(Right) - Sanya Vega DO Surgeon Sanya Vega DO Linen Room Supervisor Sanya Bonilla PA-C Estimated Blood Loss 30 Findings Consistent with Post-Op Diagnosis Specimens Right femoral tibial bone Description of Procedure Implants used: I used a Cecil Persona total knee arthroplasty system with a size 5 narrow PS femur, C tibia, 31 oval patella, and a size 14 CPS polyethylene bearing. All components were cemented in place with Biomet cement. Irma arrived [facility] for the above procedure. She was seen in the preoperative holding area and the operative extremity was identified and signed. She was given a preoperative antibiotic, TXA, a spinal anesthetic and an adductor nerve block. She was taken back to the operating room and laid on the table in supine position. She was given basic sedation. The operative knee was then prepped and draped in sterile fashion. A timeout was done, and the patient and the operative extremity was properly identified. A midline incision was made directly over the patella. Dissection was taken down to the extensor mechanism. A midvastus arthrotomy was used. The medial retinaculum was released and the fat pad was mostly excised. The knee was flexed and the ACL, PCL, and meniscus were removed. A drill was sent down the center of the femoral canal followed by an intramedullary ashish. Off that ashish a distal femoral cutting block was placed. 9 mm was resected off the distal femur at 5 of valgus. A posterior referencing AP sizing guide was then placed on the distal femur. The femur measured to be a size 5. 2 drill holes were placed in 3 of external rotation. A 4-in-1 cutting block was then impacted into place. Anterior, posterior, and chamfer cuts were then made. The proximal tibia was then exposed. An external tibial alignment guide was placed. A tibial cut guide was then anchored in place and the proximal tibia was then resected. The posterior aspect of the knee was then opened up and any additional meniscus fragments and osteophytes were removed. The tibia measured to be a size C. The tibial plate was then placed in the appropriate rotation and the tibia was drilled and punched. Trial components were then placed. I used a size 14 CPS polyethylene insert. The knee was brought through a full range of motion and felt to be stable. The peg holes for the femoral component were then drilled. The patella was then everted and 9 mm was resected off the posterior aspect of the patella. The patella measured to be a size 31 oval. 3 peg holes were then drilled. A trial patella was placed. The knee was once again brought through a full range of motion and felt to be stable. Trial components were then removed. The surrounding soft tissues were injected with 100 cc of an orthopedic pain control cocktail. All components were then cemented into place with Biomet cement. The final polyethylene insert was then snapped into place. Once cement was dry the tourniquet was deflated. Hemostasis was obtained. A dilute betadyne lavage was then done for 3 minutes. The joint was then irrigated with normal saline solution. The midvastus arthrotomy was then closed with #1 Vicryl suture. The skin was closed with 2-0 Vicryl, 3-0V lock suture, and isabella. A soft compressive dressing was placed. She was then transferred to a hospital bed and taken to the postanesthesia care unit in stable condition. She tolerated the procedure well. Sanya Bonilla PA-C, was present for the entire procedure. He was critical for patient positioning, prepping, draping, retraction exposure, wound closure and application of sterile dressing. I attest to the content of the Intraoperative Record and any orders documented therein. Any exceptions are noted below.
--- NOTE | 2023-07-29 11:01 | XRay Report ---
XR knee RT 1 or 2V routine CLINICAL HISTORY: Surgical Post Op TECHNIQUE: 2 views of the right knee were obtained. Comparison: None available at the time of this dictation. FINDINGS: Patient is status post total knee arthroplasty with expected postsurgical changes including soft tiss ue swelling and subcutaneous emphysema. No periarticular lucency or hardware fracture is seen. IMPRESSION: Expected postoperative appearance status post placement of total knee arthroplasty. ACT 112: Negative or not required by law. Electronically signed by: Terrence Siegel M.D. 07/29/2023 11:00 AM
[2023-07-29] MEDS ORDERED: METOCLOPRAMIDE HCL INJ 5 MG/ML 2 ML VIAL IV PRN (11:48)
[2023-07-29] MEDS ORDERED: bisacodyL 10 MG SUPP PR PRN (11:48)
[2023-07-29] MEDS ORDERED: HYDROmorphone INJ 0.5 MG/0.5 ML SYR IV PRN (11:48)
[2023-07-29] MEDS ORDERED: NALOXONE HCL 0.4 MG/1 ML VIAL/CARP IV PRN (11:48)
[2023-07-29] MEDS ORDERED: oxyCODONE HCL IR 5 MG TAB (IMMEDIATE RELEASE) PO PRN (11:48)
[2023-07-29] MEDS ORDERED: MAGNESIUM HYDROXIDE SUSP 30 ML UDC PO PRN (11:48)
[2023-07-29] MEDS: LR 60ML/HR IV SCH (12:28)
[2023-07-29] MEDS: ALLERGY Noted to ORDERED Medication SCH (12:28)
--- NOTE | 2023-07-29 12:52 | Anesthesiology Progress Note ---
Date of Service July 29, 2023 Anesthesia Post Procedure Vital Signs Vital Signs: Temp Pulse Pulse Resp BP Pulse Ox O2 Del Method 07/29/23 12:37 36.3 C L 53 L 16 133/78 95 Nasal Cannula 07/29/23 12:00 36.4 C L 57 L 16 122/76 94 Nasal Cannula 07/29/23 11:15 36.4 C L 63 21 120/71 98 Nasal Cannula 07/29/23 11:05 63 19 134/73 99 Nasal Cannula 07/29/23 10:55 58 L 23 124/69 95 Nasal Cannula 07/29/23 10:45 62 23 129/69 95 Nasal Cannula 07/29/23 10:35 63 22 132/65 96 Nasal Cannula 07/29/23 10:25 64 22 138/63 96 Nasal Cannula 07/29/23 10:15 61 16 119/68 97 Nasal Cannula 07/29/23 10:05 65 22 118/74 94 Nasal Cannula 07/29/23 09:55 65 23 124/72 95 Nasal Cannula 07/29/23 09:45 67 22 121/68 96 Nasal Cannula 07/29/23 09:36 36.1 C L 61 20 122/68 97 Oxymask 07/29/23 07:12 36.4 C L 60 17 157/81 H 94 Room Air O2 Flow Rate 07/29/23 12:37 1 07/29/23 12:00 1 07/29/23 11:15 2 07/29/23 11:05 2 07/29/23 10:55 2 07/29/23 10:45 2 07/29/23 10:35 2 07/29/23 10:25 2 07/29/23 10:15 2 07/29/23 10:05 2 07/29/23 09:55 2 07/29/23 09:45 2 07/29/23 09:36 7 07/29/23 07:12 Transfer of Care Handoff Completed per policy Notes Mental Status: alert / awake / arousable and participated in evaluation Patient Amnestic to Procedure: Yes Nausea / Vomiting: adequately controlled Pain: adequately controlled Airway Patency, RR, SpO2: stable & adequate BP & HR: stable & adequate Hydration State: stable & adequate Neuraxial Anesthesia: was administered and sensory block is resolving Anesthetic Complications: no major complications apparent and Pt Satisfied with anesthetic care
[2023-07-29] MEDS: KETOROLAC TROMETHAMINE 15 MG/ML VIAL IV SCH (13:46)
[2023-07-29] MEDS: SODIUM CHLORIDE 0.9% 1,000 ML IV SCH (13:46)
[2023-07-29] MEDS: ceFAZolin 2000MG 2,000 MG/15 ML SYR IV SCH (16:30)
[2023-07-29] MEDS: EZETIMIBE 10 MG TAB PO SCH (20:42)
[2023-07-29] MEDS: ATORVASTATIN 20 MG TAB PO SCH (20:43)
[2023-07-29] MEDS: amLODIPine BESYLATE 5 MG TAB PO SCH (20:43)
[2023-07-29] MEDS: ANASTROZOLE 1 MG TAB PO SCH (20:43)
[2023-07-29] MEDS: METOPROLOL SUCC 25MG EXT REL TAB PO SCH (20:45)
[2023-07-29] MEDS: POTASSIUM CHLORIDE 10 MEQ TABCR PO SCH (20:47)
[2023-07-29] MEDS: SENNA 8.6 MG TAB PO SCH (20:47)
[2023-07-29] MEDS: DOCUSATE SODIUM 100 MG CAP PO SCH (20:47)
[2023-07-29] MEDS: LORazepam 0.5 MG TAB PO SCH (20:53)
--- NOTE | 2023-07-30 08:15 | Orthopedic Progress Note ---
Date of Service July 30, 2023 Assessment & Plan (1) Status post right knee replacement: Overall she is doing very well. She is not having much pain in the right knee. She will be seen by physical therapy today for ambulation and range of motion exercises. The nursing staff can change her dressing after physical therapy. She is on Eliquis for DVT prophylaxis. She can be discharged home later today. She will follow-up orthopedics in 2 weeks. Sheron Solis was seen and examined at bedside this morning. Overall she is doing very well. She is not having much pain in the right knee. She has been up and ambulating to the bathroom. She has no complaints.. Review of Systems All systems reviewed & are unremarkable except as noted in HPI & below. Physical Exam On physical examination of the right knee, the dressing is clean and dry. Her leg is out full extension. She is active dorsiflexion plantarflexion of the right ankle. Results & Data Results & Data Laboratory Results . Diagnostic Findings Postoperative x-rays of the right knee show the prosthesis to be in anatomic alignment without any evidence of fracture complication, or loosening.. PG Care Time/CCT Total # of Minutes Spent Total Time Spent with Patient: Total time spent is greater than 50% in coordination of care (as documented) at patient's floor/unit and/or counseling patient: Coding Level of Care Code 62547 Post Operative Follow-Up Diagnoses Status post right knee replacement Z96.651
--- NOTE | 2023-07-30 08:16 | Discharge Summary ---
Date of Service July 30, 2023 Principal Diagnosis Same as "Discharge Diagnosis" noted below under Discharge Instructions. Discharge Exam On physical examination of the right knee, the dressing is clean and dry. Her leg is out full extension. She is active dorsiflexion plantarflexion of the right ankle. Discharge Data Procedures Performed Operation Date: 07/29/23 08:00 Actual Procedures p Right Total Knee Arthroplasty(Right) - Sanya Vega DO Ordered Studies 07/29/23 05:00 US - OR guided needle placemen Routine Hospital Course (1) Status post right knee replacement: On July 29, 2023 Irma arrived at [facility] and underwent a right knee replacement without complication. She had a spinal anesthetic. Postoperatively she was started on Eliquis for DVT prophylaxis and transferred to the general orthopedic floors. Her hospital course was uneventful. On postop day #1, her vital signs were stable and her pain was well-controlled. She was able to participate well with physical therapy doing ambulation and range of motion exercises. She was then discharged home. She will follow-up with orthopedics in 2 weeks. PG Care Time/CCT Total # of Minutes Spent Total Time Spent with Patient: Total time spent is greater than 50% in coordination of care (as documented) at patient's floor/unit and/or counseling patient: Discharge Plan Discharge Items Patient Disposition: Home - Self-Care Reason For Visit: Degenerative Joint Disease Right Knee Discharge Diagnosis: Right knee replacement Activity: As commented below Non-emergency contact: Surgeon Call non-emergency contact if: your wound has increased redness and your wound has increased drainage Follow-up/Referrals: Jarad Paredes MD [Primary Care Provider] - Diet: Regular Addtl Attending Provider Instructions: Activity and Therapy Recommendations: * If you are using [facility] then therapy will be provided at your home until they feel you have accomplished all of your goals. * If you are using [facility] then Physical Therapy will be provided until they feel you are ready to start Outpatient Physical Therapy. * If you are not using home therapy then Outpatient Physical Therapy should start about 3-5 days from your day of surgery. Therapy will last about 6-10 weeks * It is important not to put a pillow under your knee when you are relaxing or sleeping. It is just as important to make sure you are getting your knee perfectly straight as it is to regain your knee bend. * You were shown a series of exercises in the hospital. Do these exercises three times each day including the exercises you were shown in physical therapy. * Get up and walk several times each day. For the first four weeks, try not to stand or walk for more than one hour at a time. If you do stand or walk for more than one hour, you will not hurt anything, but your leg will likely swell. * As you feel comfortable, you may change from the walker or crutches to a cane and then to independent walking. Medications: * Narcotic You will likely be sent home from the hospital with a prescription for the narcotic pain medication that worked best throughout your stay. * Cefadroxil -take the antibiotic twice a day for 10 days to help with infection. * * Eliquis -continue taking Eliquis as prescribed. * Other medications may be prescribed for specific circumstances. If you have any questions, please call the office at . * Resume previous home medications unless otherwise instructed TEDs/Elastic Stockings: The white elastic stockings help limit swelling and prevent blood clots from forming in your legs.~ The more you wear them, the more they work. Wear them for six weeks. Dressing Care: The dressing can be changed after physical therapy on postop day #1. Daily dry dressing changes for a few days, especially if the incision is still draining some. If the incision is not draining then you may leave the isabella open to air. If there is a little bit of drainage or if the isabella are getting stuck on your clothing then cover the incision with a dry dressing. The isabella will be removed at your 2 week follow-up appointment. Showering: You may shower 5 days from the day of surgery as long as the incision is no longer draining. You may shower with the isabella exposed. Let soapy water run over the isabella and pat them dry. Do not scrub or soak the incision. Things To Watch For: * Drainage from the incision site that occurs more than one week after your surgery. * Increased redness at the incision site. * Fever above 102 degrees Fahrenheit. * Unusual chest pain or shortness of breath. * Call [facility] at with any of the above problems Follow-Up Visit: Follow-up with Dr. Vega's PA (Sanya Bonilla) 2-3 weeks after your day of surgery. He will remove your isabella and answer any questions. If you have any additional questions or concerns, Dr Vega is usually in the office at the same time and will be available An appointment was probably scheduled when you signed-up for surgery in the office. If you have any questions call Office Instructions: More detailed instructions as well as Frequently Asked Questions were provided in a folder by our office when you signed-up for surgery. Please review these instructions when you get home. If you have any further questions or concerns, please feel free to call the office at [phone] Pending Studies at Discharge: No Stand-Alone Forms: [facility], Smoking Cessation Medications and DC Order Prescriptions: New tramadol 50 mg tablet 50 mg PO Q6H PRN (Reason: pain) Qty: 30 0RF cefadroxil 500 mg capsule 500 mg PO BID 10 Days Qty: 20 0RF Continued amoxicillin 500 mg tablet 2,000 mg PO ONCE Qty: 4 3RF Rx Instructions: 4 tabs 1 hour prior to procedure metoprolol succinate 25 mg tablet extended release 24 hr 37.5 mg PO BID potassium chloride 10 mEq tablet,ER particles/crystals 10 - 20 meq PO BID Rx Instructions: 20mg QAM and 10mg QPM anastrozole [Arimidex] 1 mg tablet 1 mg PO QPM amlodipine [Norvasc] 5 mg tablet 2.5 mg PO HS lorazepam 0.5 mg tablet 0.5 mg PO BID magnesium oxide 400 mg (241.3 mg magnesium) tablet 500 mg PO QAM ezetimibe [Zetia] 10 mg tablet 10 mg PO HS acetaminophen 650 mg Tablet Extended Release 650 mg PO Q12H PRN (Reason: Pain) olmesartan-hydrochlorothiazide [Benicar HCT] 40-12.5 mg Tablet 1 tab PO QAM cholecalciferol (vitamin D3) [Vitamin D3] 50 mcg (2,000 unit) Capsule 50 mcg PO QAM atorvastatin 20 mg tablet 20 mg PO HS calcium carbonate [Calcium 600] 600 mg calcium (1,500 mg) Tablet 600 mg PO QAM Eliquis 5 mg tablet 5 mg PO BID Discharge Orders: Discharge Order (Routine); Ordered 05/11/24 Ordered By: Sanya Vega Admission Data Admit Date/Time: 07/29/23 09:39 Attending Provider: Sanya Vega Admit Provider: Sanya Vega Primary Care Provider: Jarad Paredes
[2023-07-30] MEDS: hydroCHLOROthiazide 25 MG TAB PO SCH (08:19)
[2023-07-30] MEDS: dexAMETHasone 4 MG TAB PO SCH (08:20)
[2023-07-30] MEDS: POTASSIUM CHLORIDE CRTAB 20 MEQ TABCR PO SCH (08:20)
[2023-07-30] MEDS: LOSARTAN POTASSIUM 50 MG TAB PO SCH (08:20)
[2023-07-30] MEDS: MAGNESIUM OXIDE 400 MG TAB PO SCH (08:21)
[2023-07-30] MEDS: APIXABAN 5 MG TABLET PO SCH (08:21)
[2023-07-30] MEDS: MULTIVITAMIN TAB PO SCH (08:21)
[2023-07-30 08:33] LABS: Creatinine Clr Calc Pharmacy 44.5 ml/min; Est GFR (African American) 81.5 ml/min; Est GFR (Non-African American) 70.3 ml/min
== END 2023-07-30 12:18 | disposition home or self-care (01) ==
LOC: 3W 06:39 → ASU 06:39